=== PATIENT | male | born 1935 | race Caucasian/White ===

== ENCOUNTER → 2016-12-01 | Day surgery (SDC) | payer MEDICARE ==
[~2016-12-01] VITALS: Ht 180.3 cm; Wt 77.0 kg
[~2016-12-01] MED LIST: CALC1TAB33 PO; DENO120P SQ; DO NOT ADM ANY ANTICOAGULANT DRUGS XX PRN; LEUP1INJ10; LIDOCAINE 0.5%/EPINEPHrine 1:200,000 SOLN 50 ML VIAL INFIL ONE; MORP15TA73 PO; MORPHINE SULFATE 4 MG/ML INJ IV PUSH ONE; PROPOFOL 200 MG/20 ML AMP IV ONE; SODIUM CHLOR 0.9% 1000 ML INJ 1,000 ML IV SCH; VITA500T4 PO; ZYRT10CA PO; cpap FM
[2016-12-01 07:33] VITALS: BP 112/57; PULSE 93; RESP 16; TEMP 98.1; O2SAT 97
[2016-12-01 07:56] VITALS: BP 125/59; PULSE 84; RESP 18; O2SAT 97
--- NOTE | 2016-12-01 08:09 | PD ---
HPI Chief Complaint: GI Complaint Time Seen by Provider: 07:59 Travel History International Travel<30 days: No Contact w/Intl Traveler<30days: No History of Present Illness HPI 81 year-old man who presents to the emergency department complaining of rectal bleeding. He has a history of a rectal tumor and metastatic prostate cancer. He underwent a diverting colostomy for this rectal mass on November 10. Whether this is a rectal cancer or prostate cancer is still unclear. He scheduled for a repeat biopsy today is his first biopsy was reportedly nondiagnostic. He had copious bright red bleeding this morning and so came to the emergency department. He has ongoing rectal pain which is unchanged for him. Ostomy output has been unchanged. He is on oral chemotherapy, and anti- hormone therapy for the metastatic prostate cancer. History Past Medical History Narrative Medical Prostate cancer Rectal mass Social History Alcohol Use: No Tobacco Use: No Allergies-Medications (Allergen,Severity, Reaction): Coded Allergies: No Known Allergies (Unverified , 12/01/16) Reported Meds & Prescriptions Reported Meds & Active Scripts Active Reported [cpap] FM HS Morphine Sulfate CR (Morphine Sulfate) 15 Mg Tab 1 Tab PO Q3HR Zyrtec Allergy (Cetirizine HCl) 10 Mg Cap 10 Mg PO DAILY Xgeva Inj (Denosumab) 120 Mg/1.7 Ml Inj Unknown Dose SQ MONTHLY Eligard (Leuprolide Acetate (3 Month)) 22.5 Mg Inj Unknown Dose .XX DIRECTED reports unknow strength dose every 3 months Vitamin B-12 (Cyanocobalamin) 500 Mcg Tab 500 Mcg PO BID Calcitrate Plus D (Calcium Citrate-Vitamin D) 315-200 Mg-Unit Tab 2 Tab PO DAILY Review of Systems Except as stated in HPI: all other systems reviewed are Neg Physical Exam Narrative GENERAL: 81 year-old man, little bit ill-appearing, no acute distress. SKIN: Warm and dry. Some generalized pallor. HEAD: Atraumatic. Normocephalic. CARDIOVASCULAR: Regular rate and rhythm. No murmur appreciated. RESPIRATORY: No accessory muscle use. Clear to auscultation. Breath sounds equal bilaterally. GASTROINTESTINAL: Abdomen is flat and soft. His ostomy is in the left lower quadrant. Is a little erythema extending medially from the bandage the ostomy. There is some fibrinous tissue or necrotic superficial tissue on the top of the ostomy to paralyze been her for some time and is sloughing off. Mild tenderness. RECTAL: Moderate amount of oozing of dark red blood from the rectum. He has an inflamed hemorrhoid that does not appear to be the source of the bleeding. MUSCULOSKELETAL: No obvious deformities. No edema. NEUROLOGICAL: Awake and alert. No obvious cranial nerve deficits. Motor grossly within normal limits. Normal speech. Data Data Last Documented VS Vital Signs Date Time Temp Pulse Resp B/P Pulse Ox O2 Delivery O2 Flow Rate FiO2 12/01/16 09:30 79 18 125/59 96 Room Air 12/01/16 07:33 98.1 Orders Complete Blood Count With Diff (12/01/16 08:08) Comprehensive Metabolic Panel (12/01/16 08:08) Morphine Inj (Morphine Inj) (12/01/16 09:30) Admit Order (Ed Use Only) (12/01/16 ) Sodium Chlor 0.9% 1000 Ml Inj (Ns 1000 M (12/01/16 10:30) Labs Laboratory Tests Test 12/01/16 08:15 White Blood Count 9.8 TH/MM3 Red Blood Count 3.73 MIL/MM3 Hemoglobin 10.5 GM/DL Hematocrit 31.5 % Mean Corpuscular Volume 84.5 FL Mean Corpuscular Hemoglobin 28.2 PG Mean Corpuscular Hemoglobin 33.4 % Concent Red Cell Distribution Width 13.6 % Platelet Count 186 TH/MM3 Mean Platelet Volume 7.2 FL Neutrophils (%) (Auto) 80.4 % Lymphocytes (%) (Auto) 5.5 % Monocytes (%) (Auto) 13.5 % Eosinophils (%) (Auto) 0.3 % Basophils (%) (Auto) 0.3 % Neutrophils # (Auto) 7.9 TH/MM3 Lymphocytes # (Auto) 0.5 TH/MM3 Monocytes # (Auto) 1.3 TH/MM3 Eosinophils # (Auto) 0.0 TH/MM3 Basophils # (Auto) 0.0 TH/MM3 CBC Comment DIFF FINAL Differential Comment Sodium Level 129 MEQ/L Potassium Level 3.9 MEQ/L Chloride Level 92 MEQ/L Carbon Dioxide Level 26.8 MEQ/L Anion Gap 10 MEQ/L Blood Urea Nitrogen 12 MG/DL Creatinine 0.87 MG/DL Estimat Glomerular Filtration 84 ML/MIN Rate Random Glucose 103 MG/DL Calcium Level 8.2 MG/DL Total Bilirubin 0.7 MG/DL Aspartate Amino Transf 21 U/L (AST/SGOT) Alanine Aminotransferase 20 U/L (ALT/SGPT) Alkaline Phosphatase 137 U/L Total Protein 6.9 GM/DL Albumin 2.9 GM/DL MDM Medical Decision Making Medical Screen Exam Complete: Yes Emergency Medical Condition: Yes Interpretation(s) CBC unremarkable Differential Diagnosis Rectal malignancy, bleeding, chronic tumor, hemorrhoid, other Narrative Course Medical decision making INITIAL: 78-year-old man with rectal mass, bleeding from the rectum, status post diverting colostomy. His a little bit of erythema next to the colostomy as well. He is due to have a biopsy today. We'll check his cell counts, discussed with Dr. Hale. FINAL: 81 year-old man with rectal mass, bleeding from it, spoke with Dr. urbano. Recommends continuing with biopsy plan for today. Patient will be transitioned the same daycare. Diagnosis Primary Impression: Rectal cancer Unruly Sotelo MD Dec 01, 2016 08:09
[2016-12-01 08:39] LABS: AUTOMATED NEUTROPHIL # 7.9 TH/MM3 (1.8-7.7); BASOPHIL % 0.3 % (0.0-2.0); EOSINOPHIL % 0.3 % (0.0-4.0); HEMATOCRIT 31.5 % (39.0-51.0); HEMO FLAGS DIFF FINAL; LYMPH % 5.5 % (9.0-44.0); LYMPHOCYTE # 0.5 TH/MM3 (1.0-4.8); MEAN CELL VOLUME 84.5 FL (80.0-100.0); MEAN CORPUSCULAR HEMOGLOBIN 28.2 PG (27.0-34.0); MEAN CORPUSCULAR HGB CONC 33.4 % (32.0-36.0); MONO % 13.5 % (0.0-8.0); NEUT % 80.4 % (16.0-70.0); PLATELET COUNT 186 TH/MM3 (150-450); RED BLOOD COUNT 3.73 MIL/MM3 (4.50-5.90); RED CELL DISTRIBUTION WIDTH 13.6 % (11.6-17.2); WHITE BLOOD COUNT 9.8 TH/MM3 (4.0-11.0)
[2016-12-01 08:49] LABS: ANION GAP 10 MEQ/L (5-15); AST (GOT) 21 U/L (15-37); BICARBONATE 26.8 MEQ/L (21.0-32.0); BLOOD UREA NITROGEN 12 MG/DL (7-18); CHLORIDE 92 MEQ/L (98-107); GLOMERULAR FILTRATION RATE 84 ML/MIN (>89); POTASSIUM 3.9 MEQ/L (3.5-5.1); SODIUM (NA) 129 MEQ/L (136-145)
[2016-12-01 08:52] LABS: ALKALINE PHOSPHATASE 137 U/L (45-117); ALT (GPT) 20 U/L (12-78); TOTAL BILIRUBIN ADULT 0.7 MG/DL (0.2-1.0)
[2016-12-01 09:30] VITALS: BP 125/59; PULSE 79; RESP 18; O2SAT 96
[2016-12-01 10:56] VITALS: BP 102/56; PULSE 75; RESP 16; O2SAT 96
--- NOTE | 2016-12-01 15:59 | MH ---
cc: JULIO C GIBSON M.D., JEFFREY A. M.D. TOLLAND, JOHN T. M.D. DATE OF ADMISSION: 12/01/2016 CHIEF COMPLAINT Rectal bleeding and a rectal mass. HISTORY OF PRESENT ILLNESS This patient was first seen in my office in late October with rectal pain and a mass. It was felt to be metastatic prostate carcinoma down low in the anterior rectum and he was sent back to Dr. Junito Harrison who felt that it was probably not that. 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 Since that time he has been having this rectal pain and rectal bleeding although his hemoglobin has been stable at about 10.5. We since did colonoscopy and biopsy of this lesion multiple times and the biopsies came back negative for any carcinoma but did show friability and some suspicious cells. He did undergo a diverting sigmoid colostomy which was fully diverting on November 10, about three weeks ago and we scheduled him for follow up biopsy since the other biopsy was inconclusive. Today he was scheduled for the biopsy as an outpatient with examination under anesthesia, however, he showed up in the emergency room with rectal bleeding this morning. His bleeding was substantial, however, his hemoglobin has not dropped. For this reason he was continued on the schedule for examination under anesthesia and multiple Sarthak-Cut biopsies of this lesion, and excisional biopsies if possible. PAST MEDICAL HISTORY, FAMILY HISTORY, SOCIAL HISTORY, REVIEW OF SYSTEMS: As above. PHYSICAL EXAMINATION: GENERAL: Well-developed, well-nourished 81 year-old male in some distress with rectal bleeding and tenesmus. SKIN: Warm and dry. HEENT: Extraocular muscles intact. CHEST: Clear. CARDIAC: S1-S2 is heard. ABDOMEN: Soft, nontender. No masses. He has a left lower quadrant colostomy. He does have a little right cellulitis around his colostomy. RECTAL: Inspection reveals some possible cellulitis in the right buttocks, skin, but there is no abscess palpable. Rectal exam reveals a large rectal lesion anteriorly and right anteriorly. It is nearly obstructing his rectum. It is very friable, bleeding, foul odor. Extremities: Range of motion within normal limits. Neurologic: Grossly normal. IMPRESSION: 1. Probable rectal cancer. PLAN: Recommend multiple biopsies. I have discussed this with Dr. Gibson and she agrees that if this is rectal cancer that abdominal perineal resection may be too big an operation for this 81 year-old patient especially given the fact that he has metastatic prostate cancer. This would certainly be only a palliative operation and she would probably elect to treat him with chemotherapy for the rectal cancer to hopefully shrink it, decrease his bleeding and his symptoms with it. MD AKASH Rhodes/LAQUITA /3:12 PM /3:45 PM JUVENCIO
[2016-12-01 16:20] VITALS: BP 130/64; PULSE 86; RESP 16; TEMP 97.5; O2SAT 97
--- NOTE | 2016-12-04 08:10 | MP ---
cc: MARKO CUMMINS M.D., JOHN T. M.D. SAI, PADMAJA M.D. DATE OF SURGERY 12/01/2016 PREOPERATIVE DIAGNOSIS Rectal mass POSTOPERATIVE DIAGNOSIS Probable rectal cancer PROCEDURE Exam under anesthesia with Sarthak-Cut needle biopsies of lesion as well as excisional biopsies of the lesion. ANESTHESIA Monitored anesthesia care and local 1/2% Xylocaine with epinephrine 30 cc infiltrated locally. SURGEON Dr. Galeano OPERATIVE FINDINGS This patient is known to me. I first saw him in late October with rectal pain and on examination, he had a large rectal lesion that was exophytic seen to be coming from the anterior rectal wall which I thought was metastatic prostate cancer. He had just been recently treated in September with radiation therapy to his iliac area for metastatic prostate cancer. His PSA was quite elevated at that time, but came down to normal recently. I referred him back to Dr. Junito Cummins, his urologist, and he felt that this was not prostate cancer and referred him back to me. I did a colonoscopy on him on November 06 with multiple biopsies and the biopsy showed only friable tissue with some suspicious cells but no definite carcinoma. I also did a fully diverting sigmoid colostomy on him on November 10, 2015 for palliation of his bleeding and his tenesmus and rectal pain. It has not really helped him to a large degree. He has stopped bleeding fairly well and his hemoglobin remains about 10.5 since then. The tenesmus and pain is still bothering him and we scheduled him today for a transanal excisional biopsy and the Sarthak-Cut needle biopsy of this lesion. At surgery, the lesion was quite friable multiple cores were taken, as well as pieces of the lesion. It appeared necrotic and friable. There was some skin redness and cellulitis to the right side of his buttocks, however, no abscess was seen. OPERATIVE TECHNIQUE The patient was placed on table in the left lateral position, given intravenous monitored anesthesia care and the area was prepped and draped in the usual manner. A Samano bivalve and the Hill-Gutierrez retractor was inserted into the anus. Multiple cores of a Sarthak-Cut needle were passed through the lesion and placed on Telfa. I then took multiple large pieces of this lesion which appeared friable and necrotic and sent it for permanent section as well. At the termination of the procedure, Monsel's solution was placed on a 4x4 up into the rectum to control his bleeding. Of note, it should be mentioned that he came into the emergency department on the morning of this procedure because of increase rectal bleeding, although his hemoglobin was stable. At the termination of procedure, hemostasis was excellent. Dressings were applied. Sponge, needle and instrument counts were reported as correct. The estimated blood loss was minimal from my procedure. The patient tolerated the procedure well and left the operating room in good condition. MD AKASH Rhodes/SANDRA /3:08 PM /7:54 AM JUVENCIO
== END | disposition home or self-care (01) ==
LOC: NEPE 07:30 → HSDC 10:21
PROVIDERS: ATTEND Colon & Rectal Surgery
DX: C20 Malignant neoplasm of rectum (principal); C61 Malignant neoplasm of prostate; G47.33 Obstructive sleep apnea (adult) (pediatric)
CPT/HCPCS: 00902; 45100; 80053; 85025; 88305; 88341; 88342; 96374; 99284; J2270; J7030; J3010